=== PATIENT | male | born 1990 | race Caucasian/White ===

== ENCOUNTER 2022-01-20 09:24 | Emergency (ER) | payer BC, SELFPAY ==
[2022-01-20 09:26] VITALS: BP 112/75; PULSE 109; RESP 20; TEMP 36.7; O2SAT 96; BMI 20.1
[2022-01-20 09:54] LABS: IDNOW Serial# 16C4AD1C; Influenza A Positive (Negative); Influenza B2 Negative (Negative)
[2022-01-20 09:55] LABS: COVID-19 Test Negative (Negative)
--- NOTE | 2022-01-20 09:58 | ED_ITS ---
HPI - General Adult General Chief complaint: General Medical Stated complaint: Head inj/Cold symptoms Time Seen by Provider: 01/20/22 09:39 Source: patient Mode of arrival: ambulatory Limitations: no limitations History of Present Illness HPI narrative: 31-year-old male presenting to the ED with complaints of intermittent headache/lightheadedness/dizziness since he had a head injury on Sunday 2 days ago at work when he was moving around something him a truck he did realize how close he was to the light and he impacted the light with the right side of his forehead. He did not lose consciousness and he is not on any blood thinners. He denies any other symptoms related to that. He reports that yesterday he started with chills, nasal congestion/rhinorrhea, body aches and a dry cough. Reports that he is vaccinated to COVID and not the flu. Reports that his father and sister were recently diagnosed with the flu approximately 2 weeks ago. He denies any measured fevers, neck pain/stiffness or injury, loss of taste or smell, changes in vision, ear pain, chest pain or shortness of breath, nausea/vomiting/diarrhea constipation, abdominal pain, rashes, dysuria or any other symptoms complaints or concerns at this time. MD complaint: URI symptoms and head injury at work Onset (ago): day(s) (2) Location: head (Right side of the forehead) Radiation: non-radiation Severity: mild Quality: aching Pain Consistency: constant Relieving factors: cold therapy and medication Exacerbating factors: none Treatments prior to arrival: none Related Data Previous Rx's Medication Instructions Recorded acetaminophen 500 mg tablet 1,000 mg PO QID PRN #14 tab 01/20/22 (Tylenol Extra Strength) oseltamivir 75 mg capsule (Tamiflu) 75 mg PO BID 5 Days #10 cap 01/20/22 Allergies Allergy/AdvReac Type Severity Reaction Status Date / Time No Known Allergies Allergy Verified 01/20/22 10:06 Review of Systems Review of Systems: Constitutional : + chills/fatigue/malaise, No Weight loss, No Fever, No Night Sweats ENT/Mouth : + nasal congestion/rhinorrhea, No Hearing loss, No Ear Pain, No Sinus Pain, No Hoarseness, No sore throat, No Swallowing Difficulty Eyes: No Eye Pain, No Swelling, No Redness, No Foreign Body, No Discharge, No Vision Changes Cardiovascular : No Chest Pain, No SOB, No Dyspnea on Exertion, No Orthopnea, No Edema, No Palpitations Respiratory : + Cough, No Sputum, No Wheezing, No Smoke Exposure, No Dyspnea Gastrointestinal : No Nausea, No Vomiting, No Diarrhea, No Constipation, No abdominal Pain, No Hematochezia, No Melena Genitourinary : no irregular bleeding, No Dysuria, No Urinary Frequency, No Hematuria, No Urinary Incontinence, No Urgency, No Flank Pain, No Urinary Flow Changes, No Hesitancy Musculoskeletal : No joint pain, No Myalgias, No Joint Swelling Skin : No Skin Lesions, No rash Neuro : + intermittent headache/dizziness, No Weakness, No Numbness, No Paresthesias, No Loss of Consciousness Psych : No Anxiety/Panic, No Depression, No SI/HI/AH/VH, No Social Issues, Heme/Lymph: No Bruising, No Bleeding,No Lymphadenopathy Endocrine : No Polyuria, No Polydipsia, No Temperature Intolerance Yes all other systems are reviewed and are negative COUNT INCLUDES [facility] Past Medical History Attestation statement: The following information was validated with the patient. Social History Social History Advance Directives: No Advance Directives Information Provided: No Physical Exam ED Vital Signs: Vital Signs - 24 hr 01/20/22 09:26 Temperature 98.0 F Pulse Rate 109 H Respiratory Rate 20 Blood Pressure 112/75 Pulse Oximetry 96 BMI result Body Mass Index 20.1 vital signs have been reviewed as normal and appeared to be correct. Blood pressure normal. Heart rate normal. Respiration rate normal. Temperature normal. Oxygen saturation normal. Appearance: Alert. Oriented X3. No acute distress. Head: Normal external exam. Normocephalic. Atraumatic. No Resendiz signs noted. No raccoon eyes noted Eyes: PERRLA. EOMI. Conjunctiva and sclera normal. Eyelids normal. ENT: EAC normal. TM's Normal. No septal hematoma noted. No hemotympanum noted. Pharynx normal. Uvula midline. Moist mucous membranes. No lesions/ulcerations or masses noted on the tongue. Normal voice. No trismus noted. No drooling noted. No muffled voice noted. Neck: Normal inspection. Neck supple. FROM. No adenopathy. Thyroid Normal. No tracheal deviation noted. No crepitus is noted. No meningeal signs. No neck mass noted. No signs of trauma noted. CVS: Normal heart rate and rhythm. Heart sound normal. Pulses normal throughout. No murmurs/rales/gallops. Respiratory: No respiratory distress. Painless inspiration. Breath sounds normal. No wheezes/rales/rhonchi noted. Chest nontender. No crepitus is noted. No signs of trauma noted. No accessory muscle usage noted or decreased air movement noted. No signs of trauma. Abdomen: Soft and nontender. Bowel sounds normal in all 4 quadrants. No distention noted. No organomegaly noted. No visible injury noted. Back: No CVA tenderness. Full range of motion noted. Nontender. No signs of trauma. Patient neuro intact bilaterally and distally on all 4 extremities. Patient's reflexes intact bilaterally and distally on all 4 extremities. No rashes/lesion/induration/fluctuance or signs of infection noted. Skin: Skin warm and dry. Normal skin color. Normal skin turgor. No rashes/lesions/lacerations noted. Extremities: No lower extremity edema. No calf tenderness is noted. Extremities exhibit normal range of motion and nontender. Neuro: Oriented X 3. No motor deficit. No sensory deficit. Reflexes normal. Normal steady gait. No focal neuro deficits noted. CN's II-XII intact bilaterally? Vascular: + radial pulses/+ 2 distal pedal pulses/+2 dorsalis pedis b/l. Normal cap refill. No cyanosis noted to upper extremity nails and lower extremity toes nails. Course Course Course Narrative: 31-year-old male presenting to the ED with complaints of intermittent headache/lightheadedness/dizziness since he had a head injury on Sunday 2 days ago at work when he was moving around something him a truck he did realize how close he was to the light and he impacted the light with the right side of his forehead. He did not lose consciousness and he is not on any blood thinners. He denies any other symptoms related to that. He reports that yesterday he started with chills, nasal congestion/rhinorrhea, body aches and a dry cough. Reports that he is vaccinated to COVID and not the flu. Reports that his father and sister were recently diagnosed with the flu approximately 2 weeks ago. He denies any measured fevers, neck pain/stiffness or injury, loss of taste or smell, changes in vision, ear pain, chest pain or shortness of breath, nausea/vomiting/diarrhea constipation, abdominal pain, rashes, dysuria or any other symptoms complaints or concerns at this time. On exam patient is alert oriented x3. Not in any acute distress. No signs of trauma. No scalp depressions. No septal hematoma. No hemotympanum noted. Neck is soft nontender with full range of motion no mid cervical tenderness step-offs or deformities. Patient neuro intact bilaterally and distally on all 4 extremities. Reflexes intact bilaterally and distally in all 4 extremities. Normal steady gait. Therefore patient most likely head injury/concussion no indication for CT scan as patient has a normal neuro exam and this happened 48 hours ago or longer. He tested positive for influenza A. Negative for COVID and influenza B. Will DC home with symptomatic treatment instructions return if any new or worsening symptoms to follow up with primary care provider and [facility] Patient understands agrees with this plan. Medical Decision Making Medical Records Medical records reviewed: Yes I reviewed the patient's medical records. Lab Data Lab results reviewed: Yes I reviewed the patient's lab results. Labs: Lab Results 01/20/22 01/20/22 Range/Units 09:34 09:34 COVID-19 (XAVI) Negative (Negative) COVID-19 Clin Com See Note Influenza Type A (NICKIE) Positive A (Negative) Influenza Type B (NICKIE) Negative (Negative) Influenza A & B Note See Note Discharge Plan Discharge Clinical Impression: Head injury, Influenza A Patient Disposition: Home, Self-Care Instructions: Influenza (ED), Flu Shot (Vaccine) for Adults (ED), Head Injury (ED), Droplet Precautions (ED) Prescriptions: New oseltamivir [Tamiflu] 75 mg capsule 75 mg PO BID 5 Days Qty: 10 0RF acetaminophen [Tylenol Extra Strength] 500 mg tablet 1,000 mg PO QID PRN (Reason: fever or pain) Qty: 14 0RF Referrals: [facility] [Provider Group] - 2 days Chi Saeed MD [Primary Care Provider] - Stand Alone Forms: Work/School Release Print Language: Georgian
== END 2022-01-20 10:12 | disposition home or self-care (01) ==
PROVIDERS: Emergency Provider Emergency Medicine Emergency Medical Services; PCP Internal Medicine
DX: J10.1 Influenza due to other identified influenza virus with other respiratory manifestations (principal); S09.90XA Unspecified injury of head, initial encounter; Z20.822 Contact with and (suspected) exposure to COVID-19; W22.09XA Striking against other stationary object, initial encounter; Y93.9 Activity, unspecified; Y92.9 Unspecified place or not applicable; Y99.0 Civilian activity done for income or pay
CPT/HCPCS: 87502; 87635; 99283

== ENCOUNTER 2022-04-28 14:28 | Outpatient (REF) | payer BC, SELFPAY ==
[2022-04-28 14:59] LABS: COVID-19 Test Positive (Negative)
== END 2022-04-28 14:29 | disposition home or self-care (01) ==
LOC: HO.LAB 14:28
PROVIDERS: Visit Provider Internal Medicine
DX: Z20.822 Contact with and (suspected) exposure to COVID-19 (principal)
CPT/HCPCS: 87635; C9803

== ENCOUNTER 2022-09-21 12:02 | Emergency (ER) | payer BC, SELFPAY ==
[2022-09-21 12:10] VITALS: BP 147/83; PULSE 101; RESP 18; TEMP 35.7; O2SAT 95; BMI 19.3
--- NOTE | 2022-09-21 13:05 | ED_ITS ---
HPI - Alcohol General Chief Complaint: ETOH/Substance Use Stated Complaint: ETOH INTOX, WANTS DETOX Time Seen by Provider: 09/21/22 12:43 Source: patient, family and EMS Mode of arrival: EMS Limitations: no limitations History of Present Illness HPI narrative: 32-year-old male presents with his grandfather to the emergency department for alcohol intoxication. Patient states he has been sober for ?a long time?. Denies SI or HI states he feels safe at home he does have somebody that can be with him. He currently has a sober ride home as well. He is looking for detox. He states he was told by a [address] police officer that we have detox at the facility did explain to him that is not true. I will have the case management team come see him. complaint: alcohol intoxication Related Data Previous Rx's Medication Instructions Recorded acetaminophen 500 mg tablet 1,000 mg PO QID PRN fever or pain 01/20/22 (Tylenol Extra Strength) #14 tabs oseltamivir 75 mg capsule (Tamiflu) 75 mg PO BID 5 days #10 caps 01/20/22 Allergies Allergy/AdvReac Type Severity Reaction Status Date / Time No Known Allergies Allergy Verified 01/20/22 10:06 Review of Systems Review of Systems: Review of systems: General: Patient denies any fever chills recent illness or falls Musculoskeletal: Denies back pain or body aches or other injuries HEENT: denies headache, runny nose, ear pain Respiratory: denies shortness of breath, cough Cardiovascular: no chest pain or palpitations : denies dysuria, frequency Abdomen: no nausea vomiting denies abdominal pain Extremities: no swelling, no pain Skin: no diaphoresis Yes all other systems are reviewed and are negative [facility] Social History Social History Alcohol intake: current Alcohol intake frequency: 3 or more drinks per day Alcohol type: beer and hard liquor Use of substances other than those prescribed or required for medical reasons: No Advance Directives: No Physical Exam ED Vital Signs: Vital Signs - 24 hr 09/21/22 12:10 09/21/22 15:09 Temperature 96.2 F L Pulse Rate 101 H 113 H Respiratory Rate 18 20 Blood Pressure 147/83 H 126/74 Pulse Oximetry 95 93 Oxygen Delivery Method Room Air Room Air BMI result Body Mass Index 19.3 General: Well-appearing well-nourished in no signs of distress HEENT: Normocephalic atraumatic Neck: No signs of JVD, no masses no tenderness or lymphadenopathy Cardiovascular: Regular rate and rhythm Respiratory: Clear to auscultation bilaterally Abdomen: Soft nontender no masses Extremities: Normal pedal pulses no signs of edema Skin: Dry warm no rashes Back: No tenderness full ROM Medical Decision Making Medical Decision Making [facility] Narrative: I will consult care team to have the patient get substance abuse information on detox information [id number] Patient seen offered a bed which he refused. He looks well no vomiting during his stay here. given information to follow up outpatient. I will send home Differential Diagnosis Differential Diagnoses: The differential diagnosis associated with the presentation includes Alcohol intoxication alcohol withdrawa dehdyration, malnutrition, alcohol re lated electrolyte derangement or liver damage.l patient appears to be intoxicated this time I will give her 100 of Librium. Admission/Observation Consideration of admission/observation: Escalation of care including admission/observation considered Consult Healthcare Provider Management of the patient was discussed with: Glass Or Mirror Inspector and Behavioral Health Provider Lab Data Labs: Lab Results 09/21/22 09/21/22 Range/Units 13:26 15:12 Urine Opiates Screen Not Detected (Not Detect) Urine Fentanyl Screen Not Detected (Not Detect) Ur Barbiturates Screen Not Detected (Not Detect) Ur Phencyclidine Scrn Not Detected (Not Detect) Ur Amphetamines Screen Not Detected (Not Detect) U Benzodiazepines Scrn Not Detected (Not Detect) Urine Cocaine Screen Not Detected (Not Detect) U Marijuana (THC) Screen Not Detected (Not Detect) Ethyl Alcohol 263 mg/dL Medications Administered Discontinued Medications Generic Name Dose Route Start Last Admin Trade Name Freq PRN Reason Stop Dose Admin Chlordiazepoxide HCl 100 mg 09/21/22 13:04 09/21/22 13:13 Chlordiazepoxide Hcl 25 Mg Capsule PO 09/21/22 13:05 100 mg ONCE ONE Administration Discharge Plan Discharge Clinical Impression: Alcoholic intoxication, Alcohol abuse Patient Disposition: Home, Self-Care Instructions: At-Risk Alcohol Use (ED), Alcohol Use Disorder (ED) Additional Instructions: Please call to follow up. If you have any other concerns please return to the ED. Prescriptions: No Action oseltamivir [Tamiflu] 75 mg capsule 75 mg PO BID 5 Days Qty: 10 0RF acetaminophen [Tylenol Extra Strength] 500 mg tablet 1,000 mg PO QID PRN (Reason: fever or pain) Qty: 14 0RF
[2022-09-21] MEDS: chlordiazePOXIDE HCl 25 MG CAPSULE 100 MG PO (13:13)
[2022-09-21 13:49] LABS: Ethanol 263 mg/dL
[2022-09-21 15:09] VITALS: BP 126/74; PULSE 113; RESP 20; O2SAT 93
--- NOTE | 2022-09-21 15:21 | MHC.RECOVRN ---
This literary writer met w/ patient, patient alert, sitting up in bed. Patient reports 21 months sober from Alcohol. Patient reports about one month ago, had a reoccurrence. Patient reports drinking for 3 days, 20 nips daily, then stopping for 2 weeks, then drinking for a few days, then stopping for 1-2 weeks. Patient reports has been drinking alcohol for past 3 days, last use yesterday afternoon. Patient reports last use, drank at least 20 nips. Patient reports no history of alcohol induced seizures, patient reports no history of alcohol withdrawal. Patient states is involved and connected w/ AA community, has a sponsor and recovery supports. Patient at first requesting detox, after this literary writer discussed detox options, patient ambivalent. Reviewed risks with stopping alcohol, i.e. risk for seizure. Patient verbalized understanding. Reviewed detox bedsearch process. Patient request to think about it for a bit. This literary writer currently looking into detox bed availability as patient has private insurance, will review further recovery resources at the bedside. Patient reports vomiting blood this morning, Provider and ED RN aware.
[2022-09-21 15:27] LABS: Amphetamine Screen Urine Not Detected (Not Detect); Barbiturates, Urine Not Detected (Not Detect); Benzodiazepines Screen Urine Not Detected (Not Detect); Cannabinoid Screen Urine Not Detected (Not Detect); Cocaine Screen Urine Not Detected (Not Detect); Fentanyl, urine Not Detected (Not Detect); Opiate Screen Urine Not Detected (Not Detect); Phencyclidine Screen Urine Not Detected (Not Detect)
--- NOTE | 2022-09-21 16:12 | MHC.RECOVRN ---
This com writer met w/ patient, patient sitting up. This com writer offered patient detox bed at [facility], went to bedside with phone for intake. Patient ambivalent about detox, decided not interested at this time, requesting to go home to rest. This com writer reviewed recovery resources, detox bedsearch process with private insurance. Reviewed process with Grandfather as well. Patient provided with detox call list, [facility] information, recovery resources. Patient verbalized understanding. T/W spoke w/ Provider Dr. Spencer, whom is aware of patients request to d/.
== END 2022-09-21 16:44 | disposition home or self-care (01) ==
PROVIDERS: Emergency Provider Student in an Organized Health Care Education/Training Program; PCP Internal Medicine
DX: F10.129 Alcohol abuse with intoxication, unspecified (principal); Y90.9 Presence of alcohol in blood, level not specified; Z79.899 Other long term (current) drug therapy; Z71.41 Alcohol abuse counseling and surveillance of alcoholic
CPT/HCPCS: 36415; 80307; 82077; 99284